=== PATIENT | female | born 1940 | race Caucasian/White ===

== ENCOUNTER 2021-11-30 17:10 | Inpatient (IN) ==
[2021-11-30] MEDS ORDERED: ZANAFLEX PO PRN (17:23)
[2021-12-01] MEDS: SINGULAIR TAB 10 MG PO SCH ×2 (10:51→20:25)
[2021-12-01] MEDS: SEROquel TAB 25 mg PO SCH ×2 (10:51→20:24)
[2021-12-01] MEDS: MAG-OX TAB PO SCH (11:42)
[2021-12-01] MEDS: NORVASC TAB 5 MG PO SCH (11:42)
[2021-12-01] MEDS: ASPIRIN EC 81 MG PO SCH (11:42)
[2021-12-01] MEDS: ZESTRIL TAB 5 MG PO SCH (11:43)
[2021-12-01] MEDS: TYLENOL 325 MG TAB PO PRN ×2 (11:43→19:36)
--- NOTE | 2021-12-01 13:59 | PT/OTEVAL ---
PT/OT OBJECTIVES - HISTORY Prescription: OT consult Diagnosis: Sepsis Precautions: Fall risk PMH: Gout, HTN, osteoarthritis Prior Level of Function: Independent Other: Patient reports she lives with her daughter in a 1 story mobile home with 4 steps to enter the front. Prior to hospitalization, patient was independent with BADLs and IADLs and drove independently. - COGNITION Mental Status: Alert, Oriented, Name, Date, Place, Purpose Communication Status: Verbal Ability to Follow Directions: 2 Step Memory Loss: None - PAIN Back Pain Scale: Severe (7-8) - BED MOBILITY Rolling: Maximum Scooting: Maximum, x2 Bridging: Not Tested - TRANSFERS Supine to Sit: Maximum, x2 Sit to Stand: Not Tested Sit to Stand Comment: Pt attempted, but was unable to stand w/ FWW at EOB Sit or Stand Pivot: Not Tested - ADL'S Feeding: Independent, Setup Grooming: Setup, Minimum Toileting: Maximum Toileting Comment: catheter for #1, brief for #2 - BALANCE Static Sitting: Good Dynamic Sitting: Good - HAND DOMINANCE Extremity Function: Hand Dominance: Right - ROM Bilateral UE ROM: WFL Muscle Tone: WFL - STRENGTH Bilateral UE Strength Number: 3 PT/OT ASSESSMENT - OT Problem List: Decreased Mobility ADL's, Decreased Dressing, Decreased Bathing, Decreased UE Strength, Other Other, comment: Decreased functional activity tolerance - OT GOALS Short Term Goals Days: 10 Mobility for ADL's: Will demonstrate safe functional transfer w/ FWW w/ ModA for BADLs. Dressing: Will demonstrate UB and LB dressing at EOB w/ ModA and set up. Upper Ext. Strength/Use: Will improve BUE strength to 3+/5 for BADLs. Other: Will demonstrate F.A.T. for >15 minutes at EOB or in sitting for BADLs. [facility] Goals Days: 20 Mobility for ADL's: Will demonstrate safe functional transfer w/ FWW w/ Supv for BADLs. Dressing: Will demonstrate UB and LB dressing at EOB w/ Mod Ind. Bathing: Will demonstrate UB and LB bathing w/ Supv and set up. Upper Ext. Strength/Use: Will improve BUE strength to 4-/5 for BADLs. Other: Will demonstrate F.A.T. for >25 minutes for BADLs. - PATIENT GOALS Patient/Family Goals: To get stronger and go home Goals Discussed with Patient/Family: Yes Rehabilitation Potential: Good to meet stated goals Justification for Potential: Higher PLOF, supportive family Weakness and Barriers: Pain - PLAN Suggested Treatment Plan: Therapeutic Activity, Self Care Training, Therapeutic Ex with HEP, Patient Education - FREQUENCY AND DURATION OT: 5x/wk x 20 days Expected Continuation of Care at Discharge: Home, Home Health
--- NOTE | 2021-12-01 15:12 | PT/OTEVAL ---
PT/OT OBJECTIVES - HISTORY Prescription: PT Consult Diagnosis: Septic Shock, Physical Deconditioning Precautions: Fall Risk, Decreased Skin Integrity, Anxiety PMH: Sepsis, SBO, Bowel Disimpaction, Opoid Overdose, Colitis, GI Bleed, HTN, Gout, OA, Constipation, Hypokalemia, HODAN, Hysterectomy, Bladder Tac, Cholecystectomy, Hip Sx, Knee Sx Prior Level of Function: Independent Other: Per patient report, prior to recent hospitalizations she was independent with all mobility tasks within home and community without a device including driving. Pt resides in single story home with her daughter with 4 steps to enter with single HR. Pt reports that prior to most recent hospitalization, she was receiving home health services due to another hospitalization for several weeks at [facility] and decline in overall strength & mobility. Pt states that her daughter she resides with works 3 days per week and when she is at work another daughter comes to stay with her and assist as needed. Pt reports that she was doing well with home health services and gaining her strength and independence prior to this recent hospitalization in [place]. DME: TATIANA, Jeff, BSC. - COGNITION Mental Status: Alert, Oriented, Name, Date, Place, Purpose, Anxious Communication Status: Verbal Ability to Follow Directions: 2 Step - PAIN Back Pain Scale: Severe (7-8) Comments: Pain with all movements, limiting overall participation. - BED MOBILITY Rolling: Maximum Scooting: Maximum - TRANSFERS Supine to Sit: Maximum, x2 Sit to Stand: Maximum, x2 Sit to Stand Comment: Attempted to complete with max x 2; however, pt resisting posteriorly. Sit or Stand Pivot: Not Tested Safety (requires cues for:): Hand Placement Precaution - BALANCE Static Sitting: Good Standing: Total Assist Dynamic Sitting: Good Standing: Not Tested - NEUROMOTOR/SENSATION Dashawn. Lower Ext Sensation: WFL Coordination: WFL Proprioception: WFL - HAND DOMINANCE Extremity Function: Hand Dominance: Right - ROM Bilateral LE ROM: WFL Muscle Tone: WFL - STRENGTH Bilateral UE Strength Number: 3 Bilateral LE Strength Number: 3 Other comment: 3-/5 grossly to BLEs. - GAIT Comments: Unable. PT/OT ASSESSMENT - PT Problem List: Decreased Bed Mobility, Decreased Transfers, Decreased Gait, Decreased Balance, Decreased Safety, Decreased LE Strength - PT GOALS Short Term Goals Days: 10 Mobility: Pt will perform bed mobility tasks with min assist x 1 Transfers: Pt will perform functional transfers with mod assist x 1 Gait: Pt will ambulate 25ft with FWW with mod assist x 1 Balance: Pt will increase static standing balance to fair+/good- [place] Goals Days: 20 Mobility: Pt will perform bed mobility tasks with mod I Transfers: Pt will perform functional transfers with mod I Gait: Pt will ambulate 75ft with FWW with supervision Balance: Pt will increase dynamic standing balance to fair/fair+ ROM/Strength: Pt will increase BLE strength by 1 MMT grade to improve strength & mobility Others: Pt will ascend/descend 4 stairs with single HR with CGA - OT GOALS Short Term Goals Days: 10 Mobility for ADL's: Will demonstrate safe functional transfer w/ FWW w/ ModA for BADLs. Dressing: Will demonstrate UB and LB dressing at EOB w/ ModA and set up. Upper Ext. Strength/Use: Will improve BUE strength to 3+/5 for BADLs. Other: Will demonstrate F.A.T. for >15 minutes at EOB or in sitting for BADLs. [facility] Goals Days: 20 Mobility for ADL's: Will demonstrate safe functional transfer w/ FWW w/ Supv for BADLs. Dressing: Will demonstrate UB and LB dressing at EOB w/ Mod Ind. Bathing: Will demonstrate UB and LB bathing w/ Supv and set up. Upper Ext. Strength/Use: Will improve BUE strength to 4-/5 for BADLs. Other: Will demonstrate F.A.T. for >25 minutes for BADLs. - PATIENT GOALS Patient/Family Goals: "I know I need to get stronger" Goals Discussed with Patient/Family: Yes Rehabilitation Potential: Fair to good to meet stated goals Justification for Potential: Facilitate highest level of function & safe discharge planning Weakness and Barriers: Decreased Participation, Pain If yes, explain: Pt requires increased motivation for participation to address deficits - PLAN Suggested Treatment Plan: Bed Mobility Training, Therapeutic Activity, Gait Training, Neuro Re-education, Therapeutic Ex with HEP, Patient Education - FREQUENCY AND DURATION PT: 5x per week x 20 days Expected Continuation of Care at Discharge: Home Health Anticipated Equipment Needs: TBD pending progress
[2021-12-01] MEDS ORDERED: XYLOCAINE VISCOUS MT PRN (17:19)
[2021-12-02 05:22] LABS: BASOPHILS % (AUTO) 0.7 % (0.2-1.0); EOSINOPHILS # (AUTO) 0.1 x10^3/uL (0.0-0.2); EOSINOPHILS % (AUTO) 1.6 % (0.9-2.9); HEMOGLOBIN 8.3 g/dL (12.0-16.0); LYMPHOCYTES # (AUTO) 0.7 X10^3/uL (1.3-2.9); MEAN CORPUSCULAR HEMOGLOBIN 30.3 pg (27.0-34.0); MEAN CORPUSCULAR HGB CONC 34.4 g/dL (33.0-35.0); MEAN PLATELET VOLUME 7.9 fL (7.4-11.0); MONOCYTES # (AUTO) 0.4 x10^3/uL (0.3-0.8); MONOCYTES % (AUTO) 6.1 % (0.0-13.0); NEUTROPHILS # (AUTO) 4.7 x10^3/uL (2.2-4.8); NEUTROPHILS % (AUTO) 79.6 % (42.0-75.0); RED BLOOD COUNT 2.73 X10^6/uL (3.5-5.4); RED CELL DISTRIBUTION WIDTH 14.7 % (11.6-16.5); WHITE BLOOD COUNT 5.9 X10^3/uL (3.6-10.0)
[2021-12-02 05:26] LABS: ALBUMIN 1.3 g/dL (3.4-5.0); CALCIUM 8.2 mg/dL (8.5-10.1); CARBON DIOXIDE 22.4 mmol/L (21-32); COR CA(FOR HYPOALB) 10.4 mg/dL (8.5-10.1); CREATININE 1.65 mg/dL (0.55-1.02); TOTAL PROTEIN 4.8 g/dL (6.4-8.2)
[2021-12-02] MEDS ORDERED: POTASSIUM CHL 60 MEQ/NS 0.45% 500 ML IV PRN (05:45)
[2021-12-02] MEDS ORDERED: MICRO K EXTEN CAP 10 MEQ PO PRN (05:45)
[2021-12-02] MEDS ORDERED: K-DUR TAB 20 MEQ PO PRN (05:45)
[2021-12-02] MEDS ORDERED: POTASSIUM CHLORIDE LIQ 20 MEQ UDC PO PRN (05:45)
[2021-12-02] MEDS ORDERED: POTASSIUM CHL 40 MEQ/NS 0.45% 500 ML IV PRN (05:45)
[2021-12-02] MEDS: MAG-OX TAB PO SCH (06:07)
[2021-12-02] MEDS: TYLENOL 325 MG TAB PO PRN ×3 (06:13→21:28)
[2021-12-02] MEDS: ASPIRIN EC 81 MG PO SCH (09:20)
[2021-12-02] MEDS: ZESTRIL TAB 5 MG PO SCH (09:20)
[2021-12-02] MEDS: NORVASC TAB 5 MG PO SCH (09:20)
[2021-12-02 12:16] LABS: BILIRUBIN,URINE NEGATIVE (NEGATIVE); BLOOD/HEMOGLOBIN,URINE 1+ (NEGATIVE); GLUCOSE, URINE NEGATIVE (NEGATIVE); KETONES,URINE NEGATIVE (NEGATIVE); LEUKOCYTE ESTERASE ,URINE 3+ (NEGATIVE); NITRITES,URINE NEGATIVE (NEGATIVE); PROTEIN,URINE 2+ (NEGATIVE); UROBILINOGEN,URINE NORMAL (NORMAL)
[2021-12-02 12:50] LABS: APPEARANCE,URINE CLOUDY (CLEAR); COLOR,URINE YELLOW (YELLOW)
[2021-12-02 12:51] LABS: BACTERIA,URINE 3+ /HPF (NEGATIVE); RBC,URINE 0-2 /HPF (0-3); SQUAMOUS EPITHELIAL CELL,UR FEW /HPF (NEGATIVE)
[2021-12-02 12:52] LABS: GRANULAR CASTS,URINE FEW /LPF (NEGATIVE); HYALINE CASTS, URINE FEW /LPF (NEGATIVE)
[2021-12-02 12:54] LABS: YEAST,URINE NUMEROUS /HPF (NEGATIVE)
[2021-12-02] MEDS ORDERED: DIFLUCAN PO ONE (20:41)
[2021-12-02] MEDS: ROCEPHIN 1 GRAM IV PREMIX 1 G/50 ML IV.SOLN. IV SCH (21:26)
[2021-12-02] MEDS: SEROquel TAB 25 mg PO SCH (21:26)
[2021-12-02] MEDS: SINGULAIR TAB 10 MG PO SCH (21:27)
[2021-12-02] MEDS: K-RIDER 10 MEQ/NS 100 ML 10 MEQ/100 ML BAG IV PRN ×2 (22:10→23:45)
[2021-12-03] MEDS: K-RIDER 10 MEQ/NS 100 ML 10 MEQ/100 ML BAG IV PRN ×2 (01:39→03:32)
[2021-12-03 04:49] LABS: EOSINOPHILS # (AUTO) 0.1 x10^3/uL (0.0-0.2); EOSINOPHILS % (AUTO) 2.1 % (0.9-2.9); HEMATOCRIT 23.7 % (36.0-47.0); HEMOGLOBIN 8.2 g/dL (12.0-16.0); LYMPHOCYTES # (AUTO) 0.9 X10^3/uL (1.3-2.9); LYMPHOCYTES % (AUTO) 20.4 % (21.0-51.0); MEAN CORPUSCULAR HEMOGLOBIN 30.4 pg (27.0-34.0); MEAN CORPUSCULAR HGB CONC 34.7 g/dL (33.0-35.0); MEAN CORPUSCULAR VOLUME 87.9 fL (80.0-100.0); MEAN PLATELET VOLUME 7.5 fL (7.4-11.0); MONOCYTES # (AUTO) 0.4 x10^3/uL (0.3-0.8); MONOCYTES % (AUTO) 9.1 % (0.0-13.0); NEUTROPHILS % (AUTO) 67.4 % (42.0-75.0); RED CELL DISTRIBUTION WIDTH 14.6 % (11.6-16.5); WHITE BLOOD COUNT 4.4 X10^3/uL (3.6-10.0)
[2021-12-03 05:03] LABS: ALANINE AMINOTRANSFERASE 10 Units/L (12-78); ALBUMIN 1.2 g/dL (3.4-5.0); ALKALINE PHOSPHATASE 61 Units/L (46-116); ASPARTATE AMINO TRANSFERASE 10 Units/L (15-37); BLOOD UREA NITROGEN 34 mg/dL (7-18); CALCIUM 8.2 mg/dL (8.5-10.1); CARBON DIOXIDE 23.5 mmol/L (21-32); CHLORIDE 103 mmol/L (98-107); COR CA(FOR HYPOALB) 10.4 mg/dL (8.5-10.1); CREATININE 1.44 mg/dL (0.55-1.02); MAGNESIUM 1.6 mg/dL (1.7-2.9); SODIUM 135 mmol/L (136-145); TOTAL PROTEIN 4.7 g/dL (6.4-8.2); eGFR NON BLACK RACES 37 (>60)
[2021-12-03] MEDS: MAG-OX TAB PO SCH (06:22)
[2021-12-03] MEDS: ZESTRIL TAB 5 MG PO SCH (09:38)
[2021-12-03] MEDS: NORVASC TAB 5 MG PO SCH (09:38)
[2021-12-03] MEDS: ASPIRIN EC 81 MG PO SCH (09:38)
--- NOTE | 2021-12-03 10:46 | DR.H&P ---
H&P History & Physical for Day of: H&P Date: 12/03/21 Chief Complaint Chief Complaint: generalized weakness Allergies Allergies Allergy/AdvReac Type Severity Reaction Status Date / Time No Known Drug Allergies Allergy Verified 11/30/21 17:29 History of Present Illness History of Present Illness: Ms Wang is a 81y/o female with a PMH of HTN, DM2, OA and chronic opioid use who is admitted here for rehab. Patient was discharged from [facility]. She was admitted there 11/17/21 to 11/29/21 for septic shock, NSTEMI, fecal impaction, HODAN and UTI. Patient required pressors and was on IV abx. She also had aggressive fluid resuscitation for lactic acidosis and worsening renal function. She feels better today. She has trouble eating solid food due to ulcers on her tongue and mouth. She is awaiting PT/OT assessment. Patient did have low K and Mag which have been replaced. She does have anemia, Hgb 8.2. She did require transfusions during recent hospitalization. Labs: Hgb 8.2 Cr: 1.44 UA: suggestive of infection Plan: will start gentle hydration with NS at 75cc/hr. Replace K and Mag as per protocol. Monitor H/H. Check anemia panel. Change to full liquid diet as patient not able to chew solids. Continue viscous lidocaine. Continue Rocephin, follow urine Cx. PT/OT evaluation. Monitor AM labs. Past Medical History Past Medical History: Anemia, Arthritis, Diabetes and Hypertension Past Surgical History Surgical History: Cholecystectomy, Hysterectomy and Ortho Surgery Family History Family Medical History: Diabetes Mellitus and Cancer Social History Prescription drug monitoring program results: PDMP reviewed and no concerns identified Medications Home Medications: No Known Drug Allergies Allergy (Verified 11/30/21 17:29) CONTINUE taking the following medications allopurinol 300 mg PO DAILY 12/02/21 [History] amlodipine 5 mg PO DAILY 12/02/21 [History] atenolol 50 mg PO DAILY 12/02/21 [History] cholecalciferol (vitamin D3) 25 mcg PO DAILY 12/02/21 [History] cholestyramine-aspartame [Prevalite] 1 ea PO BID 12/02/21 [History] gabapentin 100 mg PO .8AM AND 2PM 12/02/21 [History] gabapentin 200 mg PO HS 12/02/21 [History] hydrochlorothiazide 12.5 mg PO DAILY 12/02/21 [History] lisinopril 5 mg PO DAILY 12/02/21 [History] magnesium oxide 400 mg PO BID 12/02/21 [History] meloxicam 15 mg PO DAILY 12/02/21 [History] metformin 500 mg PO BIDWM 12/02/21 [History] montelukast 10 mg PO HS 12/02/21 [History] oxycodone-acetaminophen 1 tab PO BID 12/02/21 [History] potassium chloride [Klor-Con M10] 10 meq PO DAILY 12/02/21 [History] quetiapine 100 mg PO DAILY 12/02/21 [History] rosuvastatin 5 mg PO DAILY 12/02/21 [History] tizanidine 2 mg PO HS 12/02/21 [History] Labs Result Diagrams: 12/03/21 04:24 12/03/21 07:30 Labs: 12/02/21 11:45 Urine,Catheterized Urine Culture - Preliminary Laboratory WBC 4.4 X10^3/uL (3.6-10.0) 12/03/21 04:24 RBC 2.70 X10^6/uL (3.5-5.4) L 12/03/21 04:24 Hgb 8.2 g/dL (12.0-16.0) L 12/03/21 04:24 Hct 23.7 % (36.0-47.0) L 12/03/21 04:24 MCV 87.9 fL (80.0-100.0) 12/03/21 04:24 MCH 30.4 pg (27.0-34.0) 12/03/21 04:24 MCHC 34.7 g/dL (33.0-35.0) 12/03/21 04:24 RDW 14.6 % (11.6-16.5) 12/03/21 04:24 Plt Count 358 X10^3/uL (150.0-450.0) 12/03/21 04:24 MPV 7.5 fL (7.4-11.0) 12/03/21 04:24 Neut % (Auto) 67.4 % (42.0-75.0) 12/03/21 04:24 Lymph % (Auto) 20.4 % (21.0-51.0) L 12/03/21 04:24 Harvey % (Auto) 9.1 % (0.0-13.0) 12/03/21 04:24 Eos % (Auto) 2.1 % (0.9-2.9) 12/03/21 04:24 Baso % (Auto) 1.0 % (0.2-1.0) 12/03/21 04:24 Neut # (Auto) 3.0 x10^3/uL (2.2-4.8) 12/03/21 04:24 Lymph # (Auto) 0.9 X10^3/uL (1.3-2.9) L 12/03/21 04:24 Harvey # (Auto) 0.4 x10^3/uL (0.3-0.8) 12/03/21 04:24 Eos # (Auto) 0.1 x10^3/uL (0.0-0.2) 12/03/21 04:24 Baso # (Auto) 0.0 X10^3/uL (0.0-0.1) 12/03/21 04:24 Absolute Nucleated RBC 0.3 /100WBC 12/03/21 04:24 Sodium 135 mmol/L (136-145) L 12/03/21 04:24 Corrected Sodium TNP 12/03/21 04:24 Potassium 3.6 mmol/L (3.5-5.1) 12/03/21 07:30 Chloride 103 mmol/L (98-107) 12/03/21 04:24 Carbon Dioxide 23.5 mmol/L (21-32) 12/03/21 04:24 BUN 34 mg/dL (7-18) H 12/03/21 04:24 Creatinine 1.44 mg/dL (0.55-1.02) H 12/03/21 04:24 Est GFR (MDRD) Af Amer 45 (>60) L 12/03/21 04:24 Est GFR (MDRD) Non-Af 37 (>60) L 12/03/21 04:24 Glucose 103 mg/dL (65-99) H 12/03/21 04:24 POC Glucose (mg/dL) 143 mg/dL (65-99) H 12/02/21 20:12 Calcium 8.2 mg/dL (8.5-10.1) L 12/03/21 04:24 Corrected Calcium 10.4 mg/dL (8.5-10.1) H 12/03/21 04:24 Magnesium 1.6 mg/dL (1.7-2.9) L 12/03/21 04:24 Total Bilirubin 0.30 mg/dL (0.2-1.0) 12/03/21 04:24 AST 10 Units/L (15-37) L 12/03/21 04:24 ALT 10 Units/L (12-78) L 12/03/21 04:24 Alkaline Phosphatase 61 Units/L (46-116) 12/03/21 04:24 Total Protein 4.7 g/dL (6.4-8.2) L 12/03/21 04:24 Albumin 1.2 g/dL (3.4-5.0) L 12/03/21 04:24 Globulin 3.5 g/dL (2.5-4.5) 12/03/21 04:24 Albumin/Globulin Ratio 0.3 Ratio (1.1-2.1) L 12/03/21 04:24 Specimen Type Catherized urine 12/02/21 11:45 Urine Color Yellow (YELLOW) 12/02/21 11:45 Urine Appearance Cloudy (CLEAR) 12/02/21 11:45 Urine pH 6.0 (5.0 - 8.0) 12/02/21 11:45 Ur Specific [place] 1.020 (1.000-1.030) 12/02/21 11:45 Urine Protein 2+ (NEGATIVE) 12/02/21 11:45 Urine Glucose (UA) Negative (NEGATIVE) 12/02/21 11:45 Urine Ketones Negative (NEGATIVE) 12/02/21 11:45 Urine Blood 1+ (NEGATIVE) 12/02/21 11:45 Urine Nitrite Negative (NEGATIVE) 12/02/21 11:45 Urine Bilirubin Negative (NEGATIVE) 12/02/21 11:45 Urine Urobilinogen Normal (NORMAL) 12/02/21 11:45 Ur Leukocyte Esterase 3+ (NEGATIVE) 12/02/21 11:45 Urine RBC 0-2 /HPF (0-3) 12/02/21 11:45 Urine WBC 20-30 /HPF (0-5) A 12/02/21 11:45 Ur Squamous Epith Cells Few /HPF (NEGATIVE) 12/02/21 11:45 Urine Bacteria 3+ /HPF (NEGATIVE) 12/02/21 11:45 Hyaline Casts Few /LPF (NEGATIVE) 12/02/21 11:45 Granular Casts Few /LPF (NEGATIVE) 12/02/21 11:45 Urine Yeast Numerous /HPF (NEGATIVE) 12/02/21 11:45 Ur Culture Indicated? Yes/culture set up 12/02/21 11:45 Review of Systems Constitutional: Weakness Eyes: No Symptoms Reported ENT: No Symptoms Reported Respiratory: No Symptoms Reported Cardiovascular: No Symptoms Reported Gastrointestinal: No Symptoms Reported Genitourinary: No Symptoms Reported Musculoskeletal: Back Pain Skin: No Symptoms Reported Neurological: No Symptoms Reported Physical Exam Vital Signs: Temperature 97.6 F Pulse Rate [Right Brachial] 78 Pulse Rate [Radial] 101 Respiratory Rate 20 Blood Pressure [Right Arm] 116/56 O2 Sat by Pulse Oximetry 98 Oriented: Normal Eyes: Normal Ear: Normal Nose: Normal Throat: Normal Respiratory: Clear Throughout Cardiovascular: Normal Auscultation: Bowel Sounds: Normal Palpation: Normal Tenderness: Normal Skin: Decreased Turgur Musculoskeletal: Leg, Back:Thoracic, Back:Lumbar and Back:Paraspinous Psychiatric: Normal Mood Description: Calm Speech Pattern: Clear and Appropriate Assessment/Plan (1) Generalized weakness: Status: Acute (2) HODAN (acute kidney injury): Status: Acute (3) Hypokalemia: Status: Acute (4) Hypomagnesemia: Status: Acute (5) Dehydration: Status: Acute (6) Anemia: Qualifiers: Anemia type: other cause Other causes of anemia: other cause, not classified Qualified Code(s): D64.89 - Other specified anemias Status: Acute (7) Chronic prescription opiate use: Status: Acute (8) HTN (hypertension): Qualifiers: Hypertension type: primary hypertension Qualified Code(s): I10 - Essential (primary) hypertension Status: Acute (9) Diabetes: Qualifiers: Diabetes mellitus complication status: without complication Diabetes mellitus corsage maker insulin use: without shelter use Diabetes mellitus type: type 2 Qualified Code(s): E11.9 - Type 2 diabetes mellitus without complications Status: Acute (10) HLD (hyperlipidemia): Qualifiers: Hyperlipidemia type: mixed hyperlipidemia Qualified Code(s): E78.2 - Mixed hyperlipidemia Status: Acute Review H&P Reviewed: Yes Patient was examined?: Yes
[2021-12-03] MEDS: XYLOCAINE VISCOUS MT SCH ×4 (13:24→21:18)
[2021-12-03] MEDS: NS 1,000 ML IV 1,000 ML IV SCH (14:18)
[2021-12-03] MEDS: MAGNESIUM SULFATE 1 GRAM/100 mL PREMIX 1 G/100 ML BAG IV PRN ×2 (14:19→16:27)
[2021-12-03] MEDS: ROCEPHIN 1 GRAM IV PREMIX 1 G/50 ML IV.SOLN. IV SCH (21:17)
[2021-12-03] MEDS: SEROquel TAB 25 mg PO SCH (21:17)
[2021-12-03] MEDS: SINGULAIR TAB 10 MG PO SCH (21:18)
[2021-12-03] MEDS: TYLENOL 325 MG TAB PO PRN (21:18)
[2021-12-04] MEDS: TYLENOL 325 MG TAB PO PRN ×2 (02:44→09:53)
[2021-12-04 04:31] LABS: BLOOD UREA NITROGEN 29 mg/dL (7-18); CALCIUM 8.1 mg/dL (8.5-10.1); CHLORIDE 104 mmol/L (98-107); CREATININE 1.26 mg/dL (0.55-1.02); MAGNESIUM 1.8 mg/dL (1.7-2.9); SODIUM 135 mmol/L (136-145); eGFR NON BLACK RACES 44 (>60)
[2021-12-04 04:32] LABS: BASOPHILS % (AUTO) 0.9 % (0.2-1.0); EOSINOPHILS # (AUTO) 0.1 x10^3/uL (0.0-0.2); EOSINOPHILS % (AUTO) 1.7 % (0.9-2.9); HEMATOCRIT 23.5 % (36.0-47.0); HEMOGLOBIN 8.1 g/dL (12.0-16.0); LYMPHOCYTES # (AUTO) 0.9 X10^3/uL (1.3-2.9); LYMPHOCYTES % (AUTO) 20.6 % (21.0-51.0); MEAN CORPUSCULAR HEMOGLOBIN 30.3 pg (27.0-34.0); MEAN CORPUSCULAR HGB CONC 34.5 g/dL (33.0-35.0); MEAN CORPUSCULAR VOLUME 87.7 fL (80.0-100.0); MEAN PLATELET VOLUME 7.4 fL (7.4-11.0); MONOCYTES # (AUTO) 0.4 x10^3/uL (0.3-0.8); MONOCYTES % (AUTO) 8.2 % (0.0-13.0); NEUTROPHILS % (AUTO) 68.6 % (42.0-75.0); RED BLOOD COUNT 2.68 X10^6/uL (3.5-5.4); RED CELL DISTRIBUTION WIDTH 14.7 % (11.6-16.5); WHITE BLOOD COUNT 4.4 X10^3/uL (3.6-10.0)
[2021-12-04] MEDS: NS 1,000 ML IV 1,000 ML IV SCH ×3 (05:00→19:59)
[2021-12-04] MEDS: MAGNESIUM SULFATE 1 GRAM/100 mL PREMIX 1 G/100 ML BAG IV PRN (05:16)
[2021-12-04] MEDS: MAG-OX TAB PO SCH (06:01)
[2021-12-04] MEDS ORDERED: PROCRIT or EPOGEN VIAL 10,000 UNITS SC NR (09:22)
[2021-12-04] MEDS: ASPIRIN EC 81 MG PO SCH (09:34)
[2021-12-04] MEDS: NORVASC TAB 5 MG PO SCH (09:36)
[2021-12-04] MEDS: ZESTRIL TAB 5 MG PO SCH (09:37)
[2021-12-04] MEDS: DIFLUCAN PO SCH (09:37)
[2021-12-04] MEDS: GLUCOPHAGE XR 24-HR PO SCH (09:38)
[2021-12-04] MEDS: ACTOS PO SCH (09:38)
[2021-12-04] MEDS: XYLOCAINE VISCOUS MT SCH ×4 (09:38→21:45)
[2021-12-04 09:55] LABS: BLOOD UREA NITROGEN 29 mg/dL (7-18); CHLORIDE 104 mmol/L (98-107); SODIUM 135 mmol/L (136-145)
[2021-12-04 09:56] LABS: ALANINE AMINOTRANSFERASE 10 Units/L (12-78); ALBUMIN 1.1 g/dL (3.4-5.0); ALKALINE PHOSPHATASE 64 Units/L (46-116); ASPARTATE AMINO TRANSFERASE 16 Units/L (15-37); CALCIUM 8.1 mg/dL (8.5-10.1); COR CA(FOR HYPOALB) 10.4 mg/dL (8.5-10.1); CREATININE 1.26 mg/dL (0.55-1.02); TOTAL PROTEIN 4.6 g/dL (6.4-8.2); eGFR NON BLACK RACES 44 (>60)
[2021-12-04 10:22] LABS: IRON 13 ug/dL (50-175)
[2021-12-04] MEDS: NYSTATIN SUSP PO SCH ×3 (12:29→21:45)
[2021-12-04] MEDS: ROCEPHIN VIAL 1 GRAM 1 G in NS 100 ML IV 100 ML IV SCH (21:45)
[2021-12-04] MEDS: SEROquel TAB 25 mg PO SCH (21:45)
[2021-12-04] MEDS: SINGULAIR TAB 10 MG PO SCH (21:45)
[2021-12-05] MEDS ORDERED: BUTT CREAM (COMPOUND) TOP PRN (08:11)
[2021-12-05] MEDS: NYSTATIN SUSP PO SCH ×4 (08:45→21:01)
[2021-12-05] MEDS: NORVASC TAB 5 MG PO SCH (08:45)
[2021-12-05] MEDS: DIFLUCAN PO SCH (08:45)
[2021-12-05] MEDS: GLUCOPHAGE XR 24-HR PO SCH (08:45)
[2021-12-05] MEDS: XYLOCAINE VISCOUS MT SCH ×4 (08:45→21:00)
[2021-12-05] MEDS: TYLENOL 325 MG TAB PO PRN (08:45)
[2021-12-05] MEDS: ZESTRIL TAB 5 MG PO SCH (08:45)
[2021-12-05] MEDS: ACTOS PO SCH (08:45)
[2021-12-05] MEDS: ASPIRIN EC 81 MG PO SCH (08:45)
[2021-12-05] MEDS: NS 1,000 ML IV 1,000 ML IV SCH ×2 (09:02→22:02)
[2021-12-05] MEDS: PERCOCET TAB 5/325 MG PO PRN ×2 (10:03→22:21)
[2021-12-05] MEDS: BUTT CREAM (COMPOUND) TOP PRN (10:04)
[2021-12-05] MEDS: ROCEPHIN VIAL 1 GRAM 1 G in NS 100 ML IV 100 ML IV SCH (21:01)
[2021-12-05] MEDS: SEROquel TAB 25 mg PO SCH (21:02)
[2021-12-05] MEDS: SINGULAIR TAB 10 MG PO SCH (22:01)
[2021-12-06] MEDS: ASPIRIN EC 81 MG PO SCH (08:16)
[2021-12-06] MEDS: FOLIC ACID TAB 1 MG PO SCH (08:16)
[2021-12-06] MEDS: GLUCOPHAGE XR 24-HR PO SCH ×2 (08:17→08:22)
[2021-12-06] MEDS: ACTOS PO SCH ×2 (08:17→08:21)
[2021-12-06] MEDS: ZESTRIL TAB 5 MG PO SCH (08:17)
[2021-12-06] MEDS: NORVASC TAB 5 MG PO SCH (08:17)
[2021-12-06] MEDS: DIFLUCAN PO SCH (08:18)
[2021-12-06] MEDS: NYSTATIN SUSP PO SCH ×4 (08:18→20:36)
[2021-12-06] MEDS: XYLOCAINE VISCOUS MT SCH ×4 (08:22→20:37)
[2021-12-06] MEDS: BUTT CREAM (COMPOUND) TOP PRN (10:19)
[2021-12-06] MEDS: PERCOCET TAB 5/325 MG PO PRN ×2 (10:20→20:37)
[2021-12-06] MEDS: NS 1,000 ML IV 1,000 ML IV SCH (14:44)
[2021-12-06] MEDS: SINGULAIR TAB 10 MG PO SCH (20:37)
[2021-12-06] MEDS: SEROquel TAB 25 mg PO SCH (20:37)
[2021-12-06] MEDS: ROCEPHIN VIAL 1 GRAM 1 G in NS 100 ML IV 100 ML IV SCH (21:50)
[2021-12-07] MEDS: NS 1,000 ML IV 1,000 ML IV SCH ×2 (04:03→17:37)
[2021-12-07] MEDS: ASPIRIN EC 81 MG PO SCH (08:55)
[2021-12-07] MEDS: DIFLUCAN PO SCH (08:55)
[2021-12-07] MEDS: ACTOS PO SCH (08:55)
[2021-12-07] MEDS: FOLIC ACID TAB 1 MG PO SCH (08:56)
[2021-12-07] MEDS: GLUCOPHAGE XR 24-HR PO SCH (08:56)
[2021-12-07] MEDS: NORVASC TAB 5 MG PO SCH (08:56)
[2021-12-07] MEDS: XYLOCAINE VISCOUS MT SCH ×5 (08:57→22:41)
[2021-12-07] MEDS: ZESTRIL TAB 5 MG PO SCH (08:57)
[2021-12-07] MEDS: NYSTATIN SUSP PO SCH ×4 (08:57→22:18)
[2021-12-07] MEDS: PERCOCET TAB 5/325 MG PO PRN ×2 (09:00→22:43)
[2021-12-07] MEDS: ROCEPHIN VIAL 1 GRAM 1 G in NS 100 ML IV 100 ML IV SCH (22:18)
[2021-12-07] MEDS: SEROquel TAB 25 mg PO SCH (22:19)
[2021-12-07] MEDS: SINGULAIR TAB 10 MG PO SCH (22:19)
[2021-12-08] MEDS: NS 1,000 ML IV 1,000 ML IV SCH ×2 (06:12→20:23)
[2021-12-08] MEDS: ACTOS PO SCH (08:49)
[2021-12-08] MEDS: ASPIRIN EC 81 MG PO SCH (08:49)
[2021-12-08] MEDS: DIFLUCAN PO SCH (08:50)
[2021-12-08] MEDS: FOLIC ACID TAB 1 MG PO SCH (08:50)
[2021-12-08] MEDS: XYLOCAINE VISCOUS MT SCH ×4 (08:50→20:52)
[2021-12-08] MEDS: GLUCOPHAGE XR 24-HR PO SCH (08:50)
[2021-12-08] MEDS: NYSTATIN SUSP PO SCH ×4 (08:50→20:29)
[2021-12-08] MEDS: ZESTRIL TAB 5 MG PO SCH (08:51)
[2021-12-08] MEDS: PERCOCET TAB 5/325 MG PO PRN ×2 (09:06→20:30)
[2021-12-08] MEDS: ROCEPHIN VIAL 1 GRAM 1 G in NS 100 ML IV 100 ML IV SCH (20:29)
[2021-12-08] MEDS: SINGULAIR TAB 10 MG PO SCH (20:30)
[2021-12-08] MEDS: SEROquel TAB 25 mg PO SCH (20:30)
[2021-12-09] MEDS: NS 1,000 ML IV 1,000 ML IV SCH ×3 (06:37→17:48)
[2021-12-09] MEDS: ASPIRIN EC 81 MG PO SCH (09:34)
[2021-12-09] MEDS: ACTOS PO SCH (09:34)
[2021-12-09] MEDS: FOLIC ACID TAB 1 MG PO SCH (09:36)
[2021-12-09] MEDS: DIFLUCAN PO SCH (09:43)
[2021-12-09] MEDS: PERCOCET TAB 5/325 MG PO PRN ×3 (09:44→22:52)
[2021-12-09] MEDS: ZESTRIL TAB 5 MG PO SCH (09:44)
[2021-12-09] MEDS: NYSTATIN SUSP PO SCH ×4 (09:44→22:51)
[2021-12-09] MEDS: XYLOCAINE VISCOUS MT SCH ×4 (11:42→21:48)
[2021-12-09 13:28] VITALS: BMI 27.2
[2021-12-09] MEDS: SINGULAIR TAB 10 MG PO SCH (22:51)
[2021-12-09] MEDS: ROCEPHIN VIAL 1 GRAM 1 G in NS 100 ML IV 100 ML IV SCH (22:51)
[2021-12-10] MEDS: NS 1,000 ML IV 1,000 ML IV SCH ×2 (01:49→13:58)
[2021-12-10] MEDS: ASPIRIN EC 81 MG PO SCH (09:20)
[2021-12-10] MEDS: FOLIC ACID TAB 1 MG PO SCH (09:21)
[2021-12-10] MEDS: NYSTATIN SUSP PO SCH ×4 (09:21→20:20)
[2021-12-10] MEDS: XYLOCAINE VISCOUS MT SCH ×4 (09:21→20:20)
[2021-12-10] MEDS: ZESTRIL TAB 5 MG PO SCH (09:21)
[2021-12-10] MEDS: DIFLUCAN PO SCH (09:21)
[2021-12-10] MEDS: ACTOS PO SCH (09:23)
[2021-12-10] MEDS: PERCOCET TAB 5/325 MG PO PRN ×2 (11:10→20:20)
[2021-12-10] MEDS: SINGULAIR TAB 10 MG PO SCH (20:20)
[2021-12-10] MEDS: ROCEPHIN VIAL 1 GRAM 1 G in NS 100 ML IV 100 ML IV SCH (20:21)
[2021-12-11] MEDS: NS 1,000 ML IV 1,000 ML IV SCH ×2 (03:51→21:03)
[2021-12-11 04:52] LABS: BASOPHILS % (AUTO) 0.6 % (0.2-1.0); EOSINOPHILS # (AUTO) 0.1 x10^3/uL (0.0-0.2); EOSINOPHILS % (AUTO) 1.4 % (0.9-2.9); HEMOGLOBIN 7.6 g/dL (12.0-16.0); LYMPHOCYTES # (AUTO) 0.9 X10^3/uL (1.3-2.9); LYMPHOCYTES % (AUTO) 22.3 % (21.0-51.0); MEAN CORPUSCULAR HEMOGLOBIN 29.6 pg (27.0-34.0); MEAN CORPUSCULAR HGB CONC 34.6 g/dL (33.0-35.0); MEAN CORPUSCULAR VOLUME 85.6 fL (80.0-100.0); MEAN PLATELET VOLUME 7.3 fL (7.4-11.0); MONOCYTES # (AUTO) 0.3 x10^3/uL (0.3-0.8); MONOCYTES % (AUTO) 6.2 % (0.0-13.0); NEUTROPHILS % (AUTO) 69.5 % (42.0-75.0); RED BLOOD COUNT 2.56 X10^6/uL (3.5-5.4); RED CELL DISTRIBUTION WIDTH 15.1 % (11.6-16.5); WHITE BLOOD COUNT 4.3 X10^3/uL (3.6-10.0)
[2021-12-11 05:02] LABS: ALANINE AMINOTRANSFERASE 8 Units/L (12-78); ALBUMIN 0.9 g/dL (3.4-5.0); ALKALINE PHOSPHATASE 92 Units/L (46-116); ASPARTATE AMINO TRANSFERASE 12 Units/L (15-37); BLOOD UREA NITROGEN 13 mg/dL (7-18); CALCIUM 7.3 mg/dL (8.5-10.1); CARBON DIOXIDE 21.9 mmol/L (21-32); CHLORIDE 111 mmol/L (98-107); COR CA(FOR HYPOALB) 9.8 mg/dL (8.5-10.1); CREATININE 0.84 mg/dL (0.55-1.02); SODIUM 142 mmol/L (136-145); eGFR NON BLACK RACES > 60 (>60)
[2021-12-11] MEDS: MAGNESIUM SULFATE 1 GRAM/100 mL PREMIX 1 G/100 ML BAG IV PRN ×6 (05:48→19:37)
[2021-12-11] MEDS: PERCOCET TAB 5/325 MG PO PRN ×2 (06:10→21:04)
[2021-12-11] MEDS: KLOR-CON PO PRN ×2 (06:10→21:05)
[2021-12-11] MEDS: ACTOS PO SCH (09:31)
[2021-12-11] MEDS: ZESTRIL TAB 5 MG PO SCH (09:32)
[2021-12-11] MEDS: XYLOCAINE VISCOUS MT SCH ×4 (09:32→21:04)
[2021-12-11] MEDS: ASPIRIN EC 81 MG PO SCH (09:39)
[2021-12-11] MEDS: FOLIC ACID TAB 1 MG PO SCH (09:40)
[2021-12-11] MEDS: NYSTATIN SUSP PO SCH ×4 (09:40→21:03)
[2021-12-11] MEDS: DIFLUCAN PO SCH (09:40)
[2021-12-11] MEDS: ROCEPHIN VIAL 1 GRAM 1 G in NS 100 ML IV 100 ML IV SCH (21:03)
[2021-12-11] MEDS: SINGULAIR TAB 10 MG PO SCH (21:04)
[2021-12-12 05:23] LABS: MAGNESIUM 1.9 mg/dL (1.7-2.9)
[2021-12-12] MEDS: MAGNESIUM SULFATE 1 GRAM/100 mL PREMIX 1 G/100 ML BAG IV PRN (05:39)
[2021-12-12] MEDS: PERCOCET TAB 5/325 MG PO PRN ×3 (05:40→20:21)
[2021-12-12] MEDS: KLOR-CON PO PRN (05:40)
[2021-12-12] MEDS: ACTOS PO SCH ×2 (09:29→12:23)
[2021-12-12] MEDS: DIFLUCAN PO SCH (09:30)
[2021-12-12] MEDS: ASPIRIN EC 81 MG PO SCH (09:30)
[2021-12-12] MEDS: FOLIC ACID TAB 1 MG PO SCH (09:30)
[2021-12-12] MEDS: NYSTATIN SUSP PO SCH ×4 (09:30→20:23)
[2021-12-12] MEDS: ZESTRIL TAB 5 MG PO SCH (09:31)
[2021-12-12] MEDS: XYLOCAINE VISCOUS MT SCH ×4 (09:31→23:29)
[2021-12-12] MEDS: NS 1,000 ML IV 1,000 ML IV SCH (14:09)
[2021-12-12] MEDS: SINGULAIR TAB 10 MG PO SCH (20:22)
[2021-12-12] MEDS: ROCEPHIN VIAL 1 GRAM 1 G in NS 100 ML IV 100 ML IV SCH (20:23)
[2021-12-12] MEDS: BUTT CREAM (COMPOUND) TOP PRN (20:24)
[2021-12-13] MEDS: NS 1,000 ML IV 1,000 ML IV SCH ×2 (02:17→12:08)
[2021-12-13] MEDS: PERCOCET TAB 5/325 MG PO PRN (05:08)
[2021-12-13 08:15] VITALS: BP 110/58
[2021-12-13] MEDS: ASPIRIN EC 81 MG PO SCH (09:53)
[2021-12-13] MEDS: ACTOS PO SCH (09:53)
[2021-12-13] MEDS: DIFLUCAN PO SCH (09:53)
[2021-12-13] MEDS: FOLIC ACID TAB 1 MG PO SCH (09:53)
[2021-12-13] MEDS: XYLOCAINE VISCOUS MT SCH (09:54)
[2021-12-13] MEDS: NYSTATIN SUSP PO SCH (09:54)
[2021-12-13] MEDS: ZESTRIL TAB 5 MG PO SCH (09:56)
== END 2021-12-13 12:45 | disposition home health service (06) | DRG 683 ==
LOC: MED/SURG 12-01 10:01
PROVIDERS: ADMIT Obstetrics & Gynecology Obstetrics; ATTEND Obstetrics & Gynecology Obstetrics
DX: E53.8 Deficiency of other specified B group vitamins; N17.8 Other acute kidney failure; R79.89 Other specified abnormal findings of blood chemistry; E86.0 Dehydration; I10 Essential (primary) hypertension; R26.89 Other abnormalities of gait and mobility; E83.42 Hypomagnesemia; L89.152 Pressure ulcer of sacral region, stage 2; Z51.89 Encounter for other specified aftercare; N39.0 Urinary tract infection, site not specified; E11.65 Type 2 diabetes mellitus with hyperglycemia; Z86.19 Personal history of other infectious and parasitic diseases; Z79.891 Long term (current) use of opiate analgesic; R53.1 Weakness; B37.0 Candidal stomatitis; E87.6 Hypokalemia; D63.8 Anemia in other chronic diseases classified elsewhere; B96.1 Klebsiella pneumoniae [K. pneumoniae] as the cause of diseases classified elsewhere